=== PATIENT | male | born 1980 | race African-American/Black ===

== ENCOUNTER 2017-08-07 08:05 | Inpatient (IN) | payer BC, OTHER ==
[~2017-08-07] VITALS: Ht 175.3 cm; Wt 59.0 kg
[2017-08-07 20:00] VITALS: BP 139/99
[2017-08-07] MEDS ORDERED: ONDANSETRON ODT 4 MG TAB.RAPDIS SL PRN (20:15)
[2017-08-07] MEDS ORDERED: CLONIDINE HCL 0.1 MG TABLET PO PRN (20:15)
[2017-08-07] MEDS ORDERED: MIRALAX 17 GM POWD.PACK PO PRN (20:15)
[2017-08-07] MEDS ORDERED: DICYCLOMINE HCL 20 MG TABLET PO PRN (20:15)
[2017-08-07] MEDS ORDERED: IBUPROFEN 400 MG TABLET PO PRN (20:15)
[2017-08-07] MEDS ORDERED: LORAZEPAM 1 MG TABLET PO PRN (20:15)
[2017-08-07] MEDS ORDERED: ACETAMINOPHEN 325 MG TABLET PO PRN (20:15)
[2017-08-07] MEDS ORDERED: THIAMINE HCL 200 MG/2 ML VIAL IM ONE (20:15)
[2017-08-07] MEDS ORDERED: NICOTINE POLACRILEX 4 MG GUM-PK OF TEN BC PRN (20:15)
[2017-08-07] MEDS ORDERED: LORAZEPAM 2 MG/1 ML VIAL IM PRN (20:15)
[2017-08-07] MEDS ORDERED: LOPERAMIDE HCL 2 MG CAPSULE PO PRN ×2 (20:15)
[2017-08-07] MEDS ORDERED: diphenhydrAMINE 50 MG CAPSULE PO PRN (20:15)
[2017-08-07] MEDS ORDERED: NICOTINE 14 MG/24HR PATCH TD PRN (20:15)
[2017-08-07] MEDS ORDERED: MAG HYDROX/AL HYDROX/SIMETH 30 ML LIQUID UDC PO PRN (20:15)
[2017-08-07 20:36] LABS: *AMPHETAMINE, URINE NEGATIVE (NEGATIVE); *BARBITURATE, URINE NEGATIVE (NEGATIVE); *CANNABINOID, URINE NEGATIVE (NEGATIVE); *COCCAINE, URINE NEGATIVE (NEGATIVE); *OPIATE, URINE NEGATIVE (NEGATIVE); *PHENCYCLIDINE SCREEN,URINE NEGATIVE (NEGATIVE)
[2017-08-07] MEDS: LORAZEPAM 1 MG TABLET PO PRN (21:45)
[2017-08-07 23:05] LABS: EOSINOPHILS # (AUTO) 0.1 K/uL (0.0-0.7); EOSINOPHILS % (AUTO) 1.7 % (0.0-7.0); HEMATOCRIT 41.4 % (36.7-47.1); HEMOGLOBIN 13.9 g/dL (12.5-16.3); LYMPHOCYTES # (AUTO) 1.5 K/uL (20.0-40.0); MEAN CORPUSCULAR HEMOGLOBIN 30.8 uug (23.8-33.4); MEAN CORPUSCULAR HGB CONC 34 g/dL (32.5-36.3); MEAN CORPUSCULAR VOLUME 91.8 fL (73.0-96.2); MONOCYTES # (AUTO) 0.6 K/uL (2.0-10.0); MONOCYTES % (AUTO) 16.2 % (0.0-11.0); NEUTROPHILS # (AUTO) 1.6 K/uL (1.8-8.9); NEUTROPHILS % (AUTO) 41.1 % (38.5-71.5); PLATELET COUNT (AUTO) 100 K/uL (152-348); WHITE BLOOD COUNT (AUTO) 3.8 K/uL (3.6-10.2)
[2017-08-07 23:10] LABS: ALANINE AMINOTRANSFERASE 16 U/L (16-63); ALKALINE PHOSPHATASE 45 U/L (50-136); AMYLASE 47 U/L (25-115); ASPARTATE AMINOTRANSFERASE 14 U/L (15-37); BILIRUBIN,TOTAL 0.7 mg/dL (0.2-1.0); CARBON DIOXIDE 29 mmol/L (21-32); CHLORIDE 100 mmol/L (98-107); CREATININE 0.8 mg/dL (0.6-1.3); GLUCOSE 130 mg/dL (74-106); MAGNESIUM 1.8 mg/dL (1.8-2.4); POTASSIUM 3.6 mmol/L (3.5-5.1); TOTAL PROTEIN, SERUM 7.1 g/dL (6.4-8.2); UREA NITROGEN, BLOOD 9 mg/dL (7-18)
[2017-08-07 23:36] LABS: ETHANOL < 3 MG/DL (0-0)
[2017-08-08 02:08] LABS: EOSINOPHILS % (MANUAL) 3 % (0-8); LYMPHOCYTES % (MANUAL) 48 % (20-40); MONOCYTES % (MANUAL) 3 % (2-10); NEUTROPHILS % (MANUAL) 46 % (42-75)
[2017-08-08 04:00] VITALS: BP 121/82
[2017-08-08 08:46] VITALS: BP 132/99
[2017-08-08] MEDS: MULTIVITAMINS,THERAPEUTIC TABLET PO SCH (08:57)
[2017-08-08] MEDS: FOLIC ACID 1 MG TABLET PO SCH (08:57)
[2017-08-08] MEDS: THIAMINE HCL 100 MG TABLET PO SCH (08:57)
[2017-08-08] MEDS ORDERED: TUBERCULIN,PURIF.PROT.DERIV. 5 TU/0.1 ML TEST ID ONE (09:00)
[2017-08-08] MEDS ORDERED: PNEUMOCOCCAL 23-VAL P-SAC VAC 0.5 ML VIAL IM ONE (10:00)
[2017-08-08 12:00] VITALS: BP 138/84
[2017-08-08 17:49] VITALS: BP 136/89
[2017-08-08 20:33] VITALS: BP 114/81
[2017-08-08] MEDS ORDERED: DIPH50CA37 PO (21:35)
[2017-08-08] MEDS ORDERED: CLON0.1T14 PO (21:35)
[2017-08-08] MEDS ORDERED: NICO4GUM38 BC (21:35)
[2017-08-09 00:20] VITALS: BP 117/86
[2017-08-09 04:12] VITALS: BP 124/81
[2017-08-09 07:06] LABS: HEPATITIS B SURFACE AG Negative (Negative)
[2017-08-09 08:00] VITALS: BP 135/91
[2017-08-09] MEDS: FOLIC ACID 1 MG TABLET PO SCH (08:43)
[2017-08-09] MEDS: LORAZEPAM 1 MG TABLET PO PRN (08:43)
[2017-08-09] MEDS: MULTIVITAMINS,THERAPEUTIC TABLET PO SCH (08:43)
[2017-08-09] MEDS: THIAMINE HCL 100 MG TABLET PO SCH (08:43)
[2017-08-09 12:00] VITALS: BP 139/94
[2017-08-09 16:00] VITALS: BP 140/95
[2017-08-09 20:11] VITALS: BP 140/87
[2017-08-10 00:35] VITALS: BP 133/84
[2017-08-10 04:26] VITALS: BP 129/77
[2017-08-10 08:00] VITALS: BP 137/96
[2017-08-10] MEDS: FOLIC ACID 1 MG TABLET PO SCH (08:14)
[2017-08-10] MEDS: MULTIVITAMINS,THERAPEUTIC TABLET PO SCH (08:14)
[2017-08-10] MEDS: THIAMINE HCL 100 MG TABLET PO SCH (08:14)
== END 2017-08-10 09:34 | disposition other institution (70) | DRG 895 ==
LOC: SRC 19:14
PROVIDERS: ADMIT Internal Medicine; ATTEND Internal Medicine
PROC: HZ2ZZZZ Detoxification Services for Substance Abuse Treatment (ICD-10-PCS; principal; 2017-08-07)
PROC: HZ41ZZZ Group Counseling for Substance Abuse Treatment, Behavioral (ICD-10-PCS; 2017-08-08)
DX: F10.230 Alcohol dependence with withdrawal, uncomplicated (principal); D69.6 Thrombocytopenia, unspecified; F12.11 Cannabis abuse, in remission; F17.210 Nicotine dependence, cigarettes, uncomplicated; Z81.1 Family history of alcohol abuse and dependence; Z83.3 Family history of diabetes mellitus; Y90.9 Presence of alcohol in blood, level not specified; R73.9 Hyperglycemia, unspecified
CPT/HCPCS: 36415; 70030-TC; 80307; 83735; 85025; 86592; 86705; 86803; 87340; 87806; 90732; G0480